=== PATIENT | female | born 1960 | race American Indian/Alaskan Native ===

== ENCOUNTER 2017-08-28 10:10 | Outpatient (CLI) | payer BC ==
[2017-08-28] MEDS ORDERED: KINEVAC IV ONE ×2 (11:05→11:07)
[2017-08-28] MEDS ORDERED: WATER FOR INJ (PF) IV ONE (11:05)
[2017-08-28] MEDS ORDERED: WATER FOR INJ (PF) 10 ML ONE (11:07)
--- NOTE | 2017-08-28 15:28 | Nuclear Medicine Report ---
HEPATOBILIARY SCAN: History: Gallstones. Findings: Following the injection of the radionuclide, serial scanning was obtained over the right upper quadrant. Initial imaging of the liver demonstrates a relatively normal activity pattern. Progressive concentration of the radionuclide in the bile ducts, with filling of both the gallbladder and small bowel, is identified within a normal time period. IMPRESSION: No cystic or common bile duct obstruction. Post CCK ejection fraction 1%.
== END 2017-08-28 10:11 | disposition home or self-care (01) ==
LOC: NM 10:10
PROVIDERS: ATTEND Internal Medicine Gastroenterology
DX: K80.20 Calculus of gallbladder without cholecystitis without obstruction (principal); R10.11 Right upper quadrant pain
CPT/HCPCS: 78227; A9537; J2805

== ENCOUNTER 2017-09-18 08:55 | Outpatient (CLI) | payer BC ==
--- NOTE | 2017-09-24 12:55 | Vascular Lab Report ---
RENAL ARTERY DUPLEX EXAM: REASON FOR EXAM: Renal artery stenosis. NOTE: Visualization is technically adequate. COMMENTS ON THE AORTA: The aorta is patent. Normal flow velocities are observed. No aneurysmal dilatation is noted. Mild atherosclerotic change is identified. The celiac artery is patent with normal flow velocity. The superior mesenteric artery is patent with normal flow velocity. COMMENTS ON THE RIGHT KIDNEY: The kidney measures 9.5 centimeters in greatest dimension. No obvious parenchymal abnormalities are noted. The renal artery is patent. Maximum systolic velocity is 127 cm/sec. This finding is consistent with less than 60% diameter reduction. Renal aortic index is 1.34. This finding is consistent with less than 60% diameter reduction. Overall findings are consistent with less than 60% diameter reduction in the renal artery. COMMENTS ON THE LEFT KIDNEY: The kidney measures 9.2 centimeters in greatest dimension. No obvious parenchymal abnormalities are noted. The renal artery is patent. Maximum systolic velocity is 167 cm/sec. This finding is consistent with less than 60% diameter reduction. Renal aortic index is 1.76. This finding is consistent with less than 60% diameter reduction. Overall findings are consistent with less than 60% diameter reduction in the renal artery. IMPRESSION: RIGHT KIDNEY: Less than 60% diameter reduction in the renal artery. LEFT KIDNEY: Less than 60% diameter reduction in the renal artery.
== END 2017-09-18 08:56 | disposition home or self-care (01) ==
LOC: VAS 08:55
DX: I70.0 Atherosclerosis of aorta (principal); R94.4 Abnormal results of kidney function studies
CPT/HCPCS: 93975